=== PATIENT | female | born 1955 | race Caucasian/White ===

== ENCOUNTER 2017-02-08 21:44 | Inpatient (IN) | payer MEDICAID ==
[~2017-02-08] VITALS: Ht 157.5 cm; Wt 89.8 kg
[2017-02-09] MEDS ORDERED: SODIUM CHLORIDE 0.9% 1,000 ML IV ONE (02:15)
[2017-02-09] MEDS ORDERED: ONDANSETRON HCL 4MG/2ML VIAL ONE (02:34)
[2017-02-09] MEDS ORDERED: MORPHINE SULFATE 10 MG/ML CPJ ONE (02:35)
[2017-02-09 08:47] LABS: TROPONIN I < 0.02 ng/mL (0.00-0.04)
[2017-02-09 10:45] VITALS: BP 148/55
[2017-02-09 10:58] VITALS: BP 148/55
[2017-02-09] MEDS ORDERED: CLONIDINE 0.1MG TABLET PO PRN (11:45)
[2017-02-09] MEDS ORDERED: TRAMADOL 50MG TABLET PO PRN (11:45)
[2017-02-09] MEDS ORDERED: IPRATROPIUM/ALBUTEROL 0.5-3(2.5)MG/3ML NEB INH PRN (11:45)
[2017-02-09] MEDS ORDERED: DOCUSATE SODIUM 100MG CAPSULE PO PRN (11:45)
[2017-02-09] MEDS ORDERED: NA PHOS,M-B/NA PHOS,DI-BA ENEMA 118ML PR PRN (11:45)
[2017-02-09] MEDS ORDERED: DEXTROSE 50% WATER 50ML SYRINGE IV PRN (11:45)
[2017-02-09] MEDS ORDERED: LORAZEPAM 2MG/ML CPJ IV PRN (11:45)
[2017-02-09] MEDS ORDERED: DIPHENHYDRAMINE 50MG/ML VIAL IV PRN (11:45)
[2017-02-09] MEDS ORDERED: ACETAMINOPHEN 325MG TABLET PO PRN (11:45)
[2017-02-09] MEDS ORDERED: ONDANSETRON HCL 4MG/2ML VIAL IV PRN (11:45)
[2017-02-09] MEDS ORDERED: MAGNESIUM/ALUMINUM HYDROXIDE/SIMETHICONE 30ML UDC PO PRN (11:45)
[2017-02-09 11:50] VITALS: BP 148/55
[2017-02-09] MEDS: BLOOD SUGAR DIAGNOSTIC STRIP TEST SCH ×3 (12:32→21:34)
[2017-02-09] MEDS ORDERED: LEVO50TA8 PO (12:45)
[2017-02-09] MEDS ORDERED: NITR100C11 PO (12:45)
[2017-02-09] MEDS ORDERED: GLIP10TA10 PO (12:45)
[2017-02-09] MEDS ORDERED: OMEG100017 PO (12:45)
[2017-02-09] MEDS ORDERED: METO50TA5 PO (12:45)
[2017-02-09] MEDS ORDERED: INSU100I24 SQ (12:45)
[2017-02-09] MEDS ORDERED: ASPI-1159 PO (12:45)
[2017-02-09] MEDS ORDERED: ATOR40TA70 PO (12:45)
[2017-02-09] MEDS: INSULIN LISPRO 100 UNITS/ML SUBCUT SCH ×3 (12:53→21:32)
[2017-02-09] MEDS: PANTOPRAZOLE SODIUM 40 MG/VIAL IV SCH (12:54)
[2017-02-09] MEDS: SUCRALFATE 1 G/10 ML UDC PO SCH ×3 (12:54→21:28)
[2017-02-09 14:37] LABS: CREATINE KINASE MB FRACTION 0.7 ng/mL (0.5-3.6); TROPONIN I 0.03 ng/mL (0.00-0.04)
[2017-02-09 15:57] VITALS: BP 108/42
[2017-02-09 16:25] LABS: *AMPHETAMINES SCREEN URINE NEGATIVE (NEGATIVE); *BARBITURATES SCREEN URINE NEGATIVE (NEGATIVE); *BENZODIAZEPINES SCREEN URINE NEGATIVE (NEGATIVE); *COCAINE SCREEN URINE NEGATIVE (NEGATIVE); CANNABINOID URINE SCREEN NEGATIVE (NEGATIVE); METHADONE URINE SCREEN NEGATIVE (NEGATIVE); OPIATES URINE SCREEN PRESUMTIVE POSITIVE (NEGATIVE); PHENCYCLIDINE URINE SCREEN NEGATIVE (NEGATIVE)
[2017-02-09 17:25] LABS: CLARITY URINE CLEAR (CLEAR); COLOR URINE YELLOW (YELLOW); GLUCOSE URINE 3+ (NEGATIVE); KETONES URINE TRACE (NEGATIVE); LEUKOCYTE ESTERASE URINE NEGATIVE (NEGATIVE); NITRITE URINE NEGATIVE (NEGATIVE); OCCULT BLOOD URINE NEGATIVE (NEGATIVE); PROTEIN URINE NEGATIVE (NEGATIVE); SPECIFIC GRAVITY URINE 1.028 (1.005-1.030); UROBILINOGEN URINE 0.2 E.U./dL (0.2-1.0)
[2017-02-09 18:10] LABS: HEMATOCRIT 34.3 % (36.0-48.0); MEAN CORPUSCULAR HEMOGLOBIN 30.2 pg (28.0-32.0); MEAN CORPUSCULAR VOLUME 86.3 fL (81.0-99.0); PLATELET 256 x1000/uL (130-400); RED BLOOD CELL COUNT 3.98 mill/uL (4.2-5.4); RED CELL DISTRIBUTION WIDTH 12.9 % (11.6-14.6)
[2017-02-09 20:00] VITALS: BP 117/44
[2017-02-09] MEDS ORDERED: ZOLPIDEM TARTRATE 5MG TABLET PO PRN (21:00)
[2017-02-09] MEDS: METOPROLOL TARTRATE 25MG TABLET PO SCH (21:00)
[2017-02-09] MEDS: LISINOPRIL 20MG TABLET PO SCH (21:00)
[2017-02-09] MEDS: ENOXAPARIN 30MG/0.3ML SYR SUBCUT SCH (21:28)
[2017-02-09 21:34] VITALS: BP 109/42
[2017-02-09] MEDS ORDERED: INSULIN DETEMIR UD 100 UNITS/ML SYR SUBCUT SCH (22:00)
[2017-02-09 23:39] LABS: CREATINE KINASE 55 IU/L (26-192); CREATINE KINASE MB FRACTION < 0.5 ng/mL (0.5-3.6); TROPONIN I 0.09 ng/mL (0.00-0.04)
[2017-02-10] VITALS: BP 114/39
[2017-02-10 04:00] VITALS: BP 112/36
[2017-02-10] MEDS: BLOOD SUGAR DIAGNOSTIC STRIP TEST SCH ×2 (06:41→13:05)
[2017-02-10] MEDS: SUCRALFATE 1 G/10 ML UDC PO SCH ×2 (06:50→12:20)
[2017-02-10 08:00] VITALS: BP 120/75
[2017-02-10] MEDS ORDERED: ASPIRIN 325MG EC TABLET PO SCH (09:00)
[2017-02-10] MEDS: ENOXAPARIN 30MG/0.3ML SYR SUBCUT SCH (09:05)
[2017-02-10] MEDS: LISINOPRIL 20MG TABLET PO SCH (09:09)
[2017-02-10] MEDS: PANTOPRAZOLE SODIUM 40 MG/VIAL IV SCH (09:10)
[2017-02-10] MEDS: METOPROLOL TARTRATE 25MG TABLET PO SCH (09:10)
[2017-02-10] MEDS: INSULIN LISPRO 100 UNITS/ML SUBCUT SCH ×2 (09:15→12:50)
[2017-02-10 12:00] VITALS: BP 122/77
== END 2017-02-10 13:45 | disposition home or self-care (01) | DRG 243 ==
LOC: ER 21:55 → 6WST 02-09 09:09 → ENRESERV 02-09 09:09
PROVIDERS: ADMIT Internal Medicine; ATTEND Internal Medicine
DX: K21.9 Gastro-esophageal reflux disease without esophagitis (principal); E11.65 Type 2 diabetes mellitus with hyperglycemia; I10 Essential (primary) hypertension; E78.00 Pure hypercholesterolemia, unspecified; E66.9 Obesity, unspecified; Z68.36 Body mass index [BMI] 36.0-36.9, adult
CPT/HCPCS: 36415; 71010; 76705; 80048; 80061; 80305; 81001; 82550; 82553; 82962; 83036; 83605; 83690; 84484; 85027; 93005; 93970; 99285; C9113; J1650; J1815; J2270; J2405; J7030

== ENCOUNTER 2017-02-11 17:34 | Emergency (ER) | payer MEDICAID ==
[~2017-02-11] VITALS: Ht 157.5 cm; Wt 98.0 kg
[~2017-02-11 17:34] MED LIST: ASPI-1159 PO; ATOR40TA70 PO; GLIP10TA10 PO; INSU100I24 SQ; LEVO50TA8 PO; METO50TA5 PO; NITR100C11 PO; OMEG100017 PO
[2017-02-11] MEDS ORDERED: SODIUM CHLORIDE 0.9% 1,000 ML IV ONE (21:21)
[2017-02-11] MEDS ORDERED: FAMOTIDINE 20MG/2ML VIAL IV STA (21:21)
[2017-02-11] MEDS ORDERED: MAGNESIUM/ALUMINUM HYDROXIDE/SIMETHICONE 30ML UDC PO STA (21:21)
[2017-02-11] MEDS ORDERED: ONDANSETRON HCL 4MG/2ML VIAL IV STA (21:21)
[2017-02-11 21:49] LABS: BASOPHILS % 1.1 % (0.0-2.0); EOSINOPHILS % 0.2 % (0.0-5.0); HEMATOCRIT. 39.9 % (36.0-48.0); HEMOGLOBIN. 13.7 g/dL (12.0-16.0); LYMPHOCYTES % 7.4 % (20.0-50.0); MEAN CORPUSCULAR HEMOGLOBIN 29.9 pg (28.0-32.0); MEAN CORPUSCULAR VOLUME 87.1 fL (81.0-99.0); MEAN PLATELET VOLUME 8.1 fl (7.4-10.4); MONOCYTES % 2.2 % (2.0-8.0); NEUTROPHILS % 89.1 % (40.0-76.0); PLATELET 307 x1000/uL (130-400); RED BLOOD CELL COUNT 4.59 mill/uL (4.2-5.4); RED CELL DISTRIBUTION WIDTH 12.8 % (11.6-14.6)
[2017-02-11 21:51] LABS: CHLORIDE 98 mEq/L (98-107)
[2017-02-11 21:52] LABS: CLARITY URINE CLEAR (CLEAR); COLOR URINE YELLOW (YELLOW); GLUCOSE URINE 3+ (NEGATIVE); KETONES URINE 1+ (NEGATIVE); LEUKOCYTE ESTERASE URINE NEGATIVE (NEGATIVE); NITRITE URINE NEGATIVE (NEGATIVE); OCCULT BLOOD URINE 1+ (NEGATIVE); PROTEIN URINE 2+ (NEGATIVE); SPECIFIC GRAVITY URINE 1.026 (1.005-1.030); UROBILINOGEN URINE 0.2 E.U./dL (0.2-1.0)
[2017-02-11 21:54] LABS: PROTHROMBIN TIME 10.8 sec (9.4-11.6)
[2017-02-11 21:59] LABS: CARBON DIOXIDE 27 mEq/L (21-32)
[2017-02-11] MEDS ORDERED: PANTOPRAZOLE SODIUM 40 MG/VIAL IV NR (23:45)
[2017-02-11] MEDS ORDERED: INSULIN REGULAR (HUMULIN R) 300UNITS/3ML SUBCUT NR (23:45)
[2017-02-11] MEDS ORDERED: SODIUM CHLORIDE 0.9% 1,000 ML IV NR (23:45)
[2017-02-12] MEDS ORDERED: CLONIDINE 0.1MG TABLET PO NR
[2017-02-12] MEDS ORDERED: ACETAMINOPHEN 500MG TABLET PO NR (02:00)
[2017-02-12 02:16] VITALS: BP 145/73
== END 2017-02-12 02:19 | disposition home or self-care (01) ==
LOC: ER 18:58
DX: R10.13 Epigastric pain (principal); E11.65 Type 2 diabetes mellitus with hyperglycemia; I10 Essential (primary) hypertension; Z79.82 Long term (current) use of aspirin; Z79.4 Long term (current) use of insulin
CPT/HCPCS: 36415; 80053; 81001; 83690; 85025; 85610; 96361; 96365; 96372; 96375; 99285; C9113; J1815; J2405; J3490; J7030; Z7610

== ENCOUNTER 2019-05-24 07:47 | Inpatient (IN) | payer MEDICAID, OTHER ==
[~2019-05-24] VITALS: Ht 152.4 cm; Wt 97.5 kg
[~2019-05-24 07:47] MED LIST changes: -ASPI-1159 PO; +ASPI-1497 PO; +METO25TA6 PO; -METO50TA5 PO; -NITR100C11 PO
[2019-05-24] MEDS ORDERED: GABAPENTIN 300MG CAPSULE PO ONE (08:15)
[2019-05-24] MEDS ORDERED: ASPIRIN 81MG TABLET PO ONE (08:15)
[2019-05-24 09:28] LABS: BASOPHILS % 0.7 % (0.0-2.0); EOSINOPHILS % 3.2 % (0.0-5.0); HEMATOCRIT. 37.4 % (36.0-48.0); HEMOGLOBIN. 12.5 g/dL (12.0-16.0); LYMPHOCYTES % 22.6 % (20.0-50.0); MEAN CORPUSCULAR HEMOGLOBIN 30.1 pg (28.0-32.0); MEAN CORPUSCULAR VOLUME 89.9 fL (81.0-99.0); MEAN PLATELET VOLUME 8.5 fl (7.4-10.4); MONOCYTES % 5.9 % (2.0-8.0); NEUTROPHILS % 67.6 % (40.0-76.0); PLATELET 230 x1000/uL (130-400); RED BLOOD CELL COUNT 4.16 mill/uL (4.2-5.4)
[2019-05-24 09:29] LABS: CHLORIDE 106 mEq/L (98-107)
[2019-05-24 12:00] VITALS: BP 128/48
[2019-05-24] MEDS ORDERED: IPRATROPIUM/ALBUTEROL 0.5-3(2.5)MG/3ML NEB HHN PRN (13:00)
[2019-05-24] MEDS ORDERED: CLONIDINE 0.1MG TABLET PO PRN (13:00)
[2019-05-24] MEDS ORDERED: ONDANSETRON HCL 4MG/2ML INJ IV PRN (13:00)
[2019-05-24] MEDS ORDERED: ACETAMINOPHEN 325MG TABLET PO PRN (13:00)
[2019-05-24] MEDS ORDERED: DIPHENHYDRAMINE 50MG/ML VIAL IV PRN (13:00)
[2019-05-24] MEDS ORDERED: GUAIFENESIN 200MG/10ML SUGAR FREE UDC PO PRN (13:00)
[2019-05-24 14:16] LABS: PHOSPHORUS 3.6 mg/dL (2.5-4.9)
[2019-05-24 14:30] VITALS: BP 126/48
[2019-05-24] MEDS ORDERED: PIOG30TA71 PO (14:36)
[2019-05-24] MEDS ORDERED: LOSA25TA26 PO (14:36)
[2019-05-24] MEDS ORDERED: AMLO10TA4 MT (14:36)
[2019-05-24] MEDS ORDERED: METOPROLOL TARTRATE 25MG TABLET PO SCH (15:30)
[2019-05-24 16:00] VITALS: BP 129/54
[2019-05-24] MEDS: GLIPIZIDE 10MG TABLET PO SCH (18:06)
[2019-05-24 20:00] VITALS: BP 130/53
[2019-05-24] MEDS: AMLODIPINE 2.5MG TABLET PO SCH (21:00)
[2019-05-24] MEDS: METOPROLOL TARTRATE 25MG TABLET PO SCH (21:00)
[2019-05-24] MEDS: ATORVASTATIN CALCIUM 20MG TABLET PO SCH (21:08)
[2019-05-25] VITALS: BP 131/58
[2019-05-25 04:00] VITALS: BP 146/67
[2019-05-25] MEDS: BLOOD SUGAR DIAGNOSTIC STRIP TEST SCH ×4 (05:54→20:51)
[2019-05-25 06:15] LABS: BASOPHILS % 0.6 % (0.0-2.0); EOSINOPHILS % 4.3 % (0.0-5.0); HEMATOCRIT. 35.2 % (36.0-48.0); HEMOGLOBIN. 11.6 g/dL (12.0-16.0); LYMPHOCYTES % 28.9 % (20.0-50.0); MEAN CORPUSCULAR HEMOGLOBIN 29.6 pg (28.0-32.0); MEAN CORPUSCULAR VOLUME 89.4 fL (81.0-99.0); MEAN PLATELET VOLUME 8.4 fl (7.4-10.4); MONOCYTES % 7.3 % (2.0-8.0); NEUTROPHILS % 58.9 % (40.0-76.0); PLATELET 223 x1000/uL (130-400); RED BLOOD CELL COUNT 3.93 mill/uL (4.2-5.4); RED CELL DISTRIBUTION WIDTH 14.6 % (11.6-14.6)
[2019-05-25 06:42] LABS: CHLORIDE 107 mEq/L (98-107)
[2019-05-25 07:11] LABS: LDL CHOLESTEROL 68 mg/dL (5-100)
[2019-05-25 07:12] LABS: HDL CHOLESTEROL 41 mg/dL (40-59)
[2019-05-25 08:00] VITALS: BP 127/59
[2019-05-25] MEDS: ASPIRIN 81MG EC TABLET PO SCH (08:07)
[2019-05-25] MEDS: GLIPIZIDE 10MG TABLET PO SCH ×2 (08:07→17:20)
[2019-05-25] MEDS: LOSARTAN POTASSIUM 25 MG TABLET PO SCH (08:07)
[2019-05-25] MEDS: LEVOTHYROXINE SODIUM 50MCG TABLET PO SCH (08:07)
[2019-05-25] MEDS: AMLODIPINE 2.5MG TABLET PO SCH ×2 (08:08→20:58)
[2019-05-25] MEDS: METOPROLOL TARTRATE 25MG TABLET PO SCH ×2 (08:11→20:47)
[2019-05-25 12:00] VITALS: BP 133/65
[2019-05-25] MEDS: INSULIN LISPRO 100 UNITS/ML SUBCUT SCH ×3 (12:51→20:59)
[2019-05-25 16:00] VITALS: BP 141/61
[2019-05-25 20:00] VITALS: BP 141/48
[2019-05-25] MEDS: ATORVASTATIN CALCIUM 20MG TABLET PO SCH (20:57)
[2019-05-26] VITALS: BP 141/43
[2019-05-26] MEDS: BLOOD SUGAR DIAGNOSTIC STRIP TEST SCH ×3 (06:49→17:59)
[2019-05-26] MEDS: GLIPIZIDE 10MG TABLET PO SCH ×2 (07:40→17:40)
[2019-05-26 08:00] VITALS: BP 135/57
[2019-05-26] MEDS: INSULIN LISPRO 100 UNITS/ML SUBCUT SCH ×3 (08:10→18:15)
[2019-05-26 08:16] LABS: BASOPHILS % 0.6 % (0.0-2.0); EOSINOPHILS % 3.9 % (0.0-5.0); HEMATOCRIT. 36.4 % (36.0-48.0); HEMOGLOBIN. 12.1 g/dL (12.0-16.0); LYMPHOCYTES % 25.3 % (20.0-50.0); MEAN CORPUSCULAR HEMOGLOBIN 29.9 pg (28.0-32.0); MEAN CORPUSCULAR VOLUME 89.8 fL (81.0-99.0); MEAN PLATELET VOLUME 8.1 fl (7.4-10.4); MONOCYTES % 7.3 % (2.0-8.0); NEUTROPHILS % 62.9 % (40.0-76.0); PLATELET 248 x1000/uL (130-400); RED BLOOD CELL COUNT 4.05 mill/uL (4.2-5.4); RED CELL DISTRIBUTION WIDTH 14.3 % (11.6-14.6)
[2019-05-26 08:32] LABS: PHOSPHORUS 3.9 mg/dL (2.5-4.9)
[2019-05-26] MEDS: METOPROLOL TARTRATE 25MG TABLET PO SCH (09:00)
[2019-05-26] MEDS: ASPIRIN 81MG EC TABLET PO SCH (09:00)
[2019-05-26] MEDS: LOSARTAN POTASSIUM 25 MG TABLET PO SCH (09:00)
[2019-05-26] MEDS: AMLODIPINE 2.5MG TABLET PO SCH (09:00)
[2019-05-26] MEDS: LEVOTHYROXINE SODIUM 50MCG TABLET PO SCH (10:09)
[2019-05-26] MEDS ORDERED: REGADENOSON 0.4 MG/5 ML IV ONE ×2 (11:39→12:45)
[2019-05-26 12:00] VITALS: BP 154/70
[2019-05-26 16:00] VITALS: BP 141/33
[2019-05-26] MEDS ORDERED: METF-414 MT (17:50)
[2019-05-26 18:06] VITALS: BP 141/33
== END 2019-05-26 19:00 | disposition home or self-care (01) | DRG 203 ==
LOC: ER 07:47 → 7WST 11:16 → ENRESERV 12:40
PROVIDERS: ADMIT Internal Medicine; ATTEND Internal Medicine
DX: M94.0 Chondrocostal junction syndrome [Tietze] (principal); E11.22 Type 2 diabetes mellitus with diabetic chronic kidney disease; E66.01 Morbid (severe) obesity due to excess calories; I07.1 Rheumatic tricuspid insufficiency; Z68.41 Body mass index [BMI] 40.0-44.9, adult; I12.9 Hypertensive chronic kidney disease with stage 1 through stage 4 chronic kidney disease, or unspecified chronic kidney disease; E78.5 Hyperlipidemia, unspecified; N18.9 Chronic kidney disease, unspecified; E78.00 Pure hypercholesterolemia, unspecified; Z79.82 Long term (current) use of aspirin; Z79.899 Other long term (current) drug therapy; Z87.440 Personal history of urinary (tract) infections
CPT/HCPCS: 36415; 71045; 78452; 80048; 80053; 80061; 82550; 82553; 82962; 83735; 83880; 84100; 84443; 84484; 85025; 93005; 93017; 93306; 93970; 99285; A9500; J1815; J2785

== ENCOUNTER 2020-09-29 17:47 | Emergency (ER) | payer MEDICAID, OTHER ==
[~2020-09-29] VITALS: Ht 157.5 cm; Wt 106.0 kg
[~2020-09-29 17:47] MED LIST changes: +AMLO10TA4 MT; -GLIP10TA10 PO; +LOSA25TA26 PO; +METF-414 MT; +PIOG30TA71 PO
[2020-09-29 18:48] LABS: BASOPHILS % 0.8 % (0.0-2.0); HEMATOCRIT. 33.6 % (36.0-48.0); HEMOGLOBIN. 11.4 g/dL (12.0-16.0); LYMPHOCYTES % 21.9 % (20.0-50.0); MEAN CORPUSCULAR HEMOGLOBIN 30.7 pg (28.0-32.0); MEAN CORPUSCULAR VOLUME 90.1 fL (81.0-99.0); MEAN PLATELET VOLUME 7.6 fl (7.4-10.4); MONOCYTES % 8.4 % (2.0-8.0); NEUTROPHILS % 65.9 % (40.0-76.0); PLATELET 274 x1000/uL (130-400); RED BLOOD CELL COUNT 3.73 mill/uL (4.2-5.4)
[2020-09-29 18:53] LABS: CHLORIDE 100 mEq/L (98-107)
[2020-09-29 21:04] VITALS: BP 118/66
== END 2020-09-29 21:14 | disposition home or self-care (01) ==
LOC: ER 17:47
DX: G62.9 Polyneuropathy, unspecified (principal); I16.0 Hypertensive urgency; I10 Essential (primary) hypertension; E78.00 Pure hypercholesterolemia, unspecified; E11.9 Type 2 diabetes mellitus without complications; E05.90 Thyrotoxicosis, unspecified without thyrotoxic crisis or storm; Z79.4 Long term (current) use of insulin; Z79.82 Long term (current) use of aspirin; Z87.440 Personal history of urinary (tract) infections
CPT/HCPCS: 36415; 70450; 71045; 80053; 82962; 85025; 93005; 99285; Z7610

== ENCOUNTER 2020-10-02 06:02 | Emergency (ER) | payer MEDICARE, OTHER ==
[~2020-10-02] VITALS: Ht 157.5 cm; Wt 105.0 kg
[2020-10-02 07:36] LABS: BASOPHILS % 0.4 % (0.0-2.0); HEMATOCRIT. 32.6 % (36.0-48.0); HEMOGLOBIN. 11.3 g/dL (12.0-16.0); LYMPHOCYTES % 23.9 % (20.0-50.0); MEAN CORPUSCULAR VOLUME 89.8 fL (81.0-99.0); MEAN PLATELET VOLUME 8.2 fl (7.4-10.4); MONOCYTES % 7.9 % (2.0-8.0); NEUTROPHILS % 64.8 % (40.0-76.0); PLATELET 257 x1000/uL (130-400); RED BLOOD CELL COUNT 3.63 mill/uL (4.2-5.4); RED CELL DISTRIBUTION WIDTH 13.8 % (11.6-14.6)
[2020-10-02 07:37] LABS: CHLORIDE 97 mEq/L (98-107)
[2020-10-02] MEDS ORDERED: SODIUM CHLORIDE 0.9% 250 ML IV ONE (08:00)
[2020-10-02 09:30] VITALS: BP 151/62
== END 2020-10-02 09:31 | disposition home or self-care (01) ==
LOC: ER 06:02
DX: I16.0 Hypertensive urgency (principal); R20.2 Paresthesia of skin; N28.9 Disorder of kidney and ureter, unspecified; E87.1 Hypo-osmolality and hyponatremia; D64.9 Anemia, unspecified; E11.9 Type 2 diabetes mellitus without complications; E78.00 Pure hypercholesterolemia, unspecified; E05.90 Thyrotoxicosis, unspecified without thyrotoxic crisis or storm; Z79.4 Long term (current) use of insulin; Z79.82 Long term (current) use of aspirin
CPT/HCPCS: 36415; 70551; 80053; 84484; 85025; 93005; 99285

== ENCOUNTER 2020-10-14 13:30 | Inpatient (IN) | payer MEDICARE, OTHER ==
[~2020-10-14] VITALS: Ht 152.4 cm; Wt 105.7 kg
[2020-10-14] MEDS ORDERED: NITROGLYCERIN OINT 1GM/INCH UDPKT TD ONE (14:15)
[2020-10-14] MEDS ORDERED: ASPIRIN 81MG TABLET PO ONE (14:15)
[2020-10-14 14:55] LABS: BASOPHILS % 0.4 % (0.0-2.0); EOSINOPHILS % 3.4 % (0.0-5.0); HEMATOCRIT. 32.2 % (36.0-48.0); HEMOGLOBIN. 11.3 g/dL (12.0-16.0); LYMPHOCYTES % 20.9 % (20.0-50.0); MEAN CORPUSCULAR HEMOGLOBIN 30.9 pg (28.0-32.0); MEAN CORPUSCULAR VOLUME 88.3 fL (81.0-99.0); MEAN PLATELET VOLUME 7.5 fl (7.4-10.4); MONOCYTES % 8.4 % (2.0-8.0); NEUTROPHILS % 66.9 % (40.0-76.0); PLATELET 267 x1000/uL (130-400); RED BLOOD CELL COUNT 3.65 mill/uL (4.2-5.4); RED CELL DISTRIBUTION WIDTH 13.4 % (11.6-14.6)
[2020-10-14 15:03] LABS: CHLORIDE 94 mEq/L (98-107)
[2020-10-14 15:07] LABS: INR 1.1; PROTHROMBIN TIME 11.6 sec (9.6-11.0)
[2020-10-14] MEDS ORDERED: SODIUM CHLORIDE 0.9% 250 ML IV ONE (16:00)
[2020-10-14] MEDS ORDERED: ACETAMINOPHEN 325MG TABLET PO PRN (19:45)
[2020-10-14] MEDS ORDERED: IPRATROPIUM/ALBUTEROL 0.5-3(2.5)MG/3ML NEB HHN PRN (19:45)
[2020-10-14] MEDS ORDERED: ONDANSETRON HCL 4MG/2ML INJ IV PRN (19:45)
[2020-10-14] MEDS ORDERED: CLONIDINE 0.1MG TABLET PO PRN (19:45)
[2020-10-14] MEDS ORDERED: DIPHENHYDRAMINE 50MG/ML VIAL IV PRN (19:45)
[2020-10-14] MEDS ORDERED: MORPHINE SULFATE 2 MG/ML CPJ (NOT FOR IM USE) IV PRN (19:45)
[2020-10-14] MEDS ORDERED: ENOXAPARIN 40MG/0.4ML SYR SUBCUT SCH (20:00)
[2020-10-14 21:15] VITALS: BP 180/67
[2020-10-14 21:45] VITALS: BP 180/67
[2020-10-14 22:30] VITALS: BP 147/52
[2020-10-14] MEDS ORDERED: HYDR25TA PO (23:11)
[2020-10-14] MEDS ORDERED: LOSA100T32 PO (23:11)
[2020-10-14] MEDS ORDERED: CHOL200059 PO (23:11)
[2020-10-15] VITALS: BP 104/42
[2020-10-15] MEDS ORDERED: DEXTROSE 50% WATER 50ML SYRINGE IV PRN (00:45)
[2020-10-15 04:30] VITALS: BP 156/61
[2020-10-15] MEDS: BLOOD SUGAR DIAGNOSTIC STRIP TEST SCH ×4 (06:42→21:57)
[2020-10-15 06:52] LABS: BASOPHILS % 0.6 % (0.0-2.0); EOSINOPHILS % 2.6 % (0.0-5.0); HEMATOCRIT. 34.9 % (36.0-48.0); LYMPHOCYTES % 24.5 % (20.0-50.0); MEAN CORPUSCULAR HEMOGLOBIN 30.7 pg (28.0-32.0); MEAN CORPUSCULAR VOLUME 89.6 fL (81.0-99.0); MEAN PLATELET VOLUME 7.6 fl (7.4-10.4); MONOCYTES % 7.1 % (2.0-8.0); NEUTROPHILS % 65.2 % (40.0-76.0); PLATELET 275 x1000/uL (130-400); RED CELL DISTRIBUTION WIDTH 13.8 % (11.6-14.6)
[2020-10-15 07:09] LABS: CHLORIDE 98 mEq/L (98-107)
[2020-10-15 07:27] LABS: HDL CHOLESTEROL 42 mg/dL (40-59)
[2020-10-15 07:30] LABS: LDL CHOLESTEROL 64 mg/dL (5-100)
[2020-10-15 08:03] VITALS: BP 128/86
[2020-10-15] MEDS: INSULIN LISPRO 100 UNITS/ML SUBCUT SCH ×4 (08:48→21:56)
[2020-10-15] MEDS ORDERED: ENOXAPARIN 40MG/0.4ML SYR SUBCUT SCH (09:00)
[2020-10-15 12:16] VITALS: BP 169/54
[2020-10-15] MEDS: LOSARTAN POTASSIUM 100 MG TABLET PO SCH (15:03)
[2020-10-15] MEDS: HYDROCHLOROTHIAZIDE 25MG TABLET PO SCH (15:03)
[2020-10-15] MEDS: CHOLECALCIFEROL (D3) 1000 UNIT TABLET PO SCH (15:03)
[2020-10-15] MEDS: ASPIRIN 81MG EC TABLET PO SCH (15:03)
[2020-10-15 15:46] VITALS: BP 145/40
[2020-10-15] MEDS: METFORMIN HCL 500MG TABLET PO SCH (17:55)
[2020-10-15 20:00] VITALS: BP 129/43
[2020-10-15] MEDS ORDERED: ATORVASTATIN CALCIUM 40MG TABLET PO SCH (21:00)
[2020-10-15] MEDS: ENOXAPARIN 40MG/0.4ML SYR SUBCUT SCH (21:39)
[2020-10-16] VITALS: BP 119/42
[2020-10-16 04:00] VITALS: BP 126/38
[2020-10-16] MEDS: BLOOD SUGAR DIAGNOSTIC STRIP TEST SCH ×2 (06:45→12:20)
[2020-10-16] MEDS: LEVOTHYROXINE SODIUM 50MCG TABLET PO SCH ×2 (06:45→06:49)
[2020-10-16 08:00] VITALS: BP 139/45
[2020-10-16] MEDS ORDERED: PIOGLITAZONE 15MG TABLET PO SCH (09:00)
[2020-10-16] MEDS: ASPIRIN 81MG EC TABLET PO SCH (09:05)
[2020-10-16] MEDS: METFORMIN HCL 500MG TABLET PO SCH (09:05)
[2020-10-16] MEDS: LOSARTAN POTASSIUM 100 MG TABLET PO SCH (09:05)
[2020-10-16] MEDS: ENOXAPARIN 40MG/0.4ML SYR SUBCUT SCH (09:06)
[2020-10-16] MEDS: HYDROCHLOROTHIAZIDE 25MG TABLET PO SCH (09:06)
[2020-10-16] MEDS: CHOLECALCIFEROL (D3) 1000 UNIT TABLET PO SCH (09:06)
[2020-10-16] MEDS: INSULIN LISPRO 100 UNITS/ML SUBCUT SCH ×2 (09:16→12:50)
[2020-10-16 12:00] VITALS: BP_SYST 113; BP_SYST 130; BP_DIAS 45; BP_DIAS 81
[2020-10-16 15:42] VITALS: BP 130/45
== END 2020-10-16 16:30 | disposition home or self-care (01) | DRG 206 ==
LOC: ER 13:30 → 6WST 17:30 → EDBEDREQTM 17:44 → EDBEDREQ 17:44 → ENRESERV 20:29
PROVIDERS: ADMIT Internal Medicine; ATTEND Internal Medicine
DX: M94.0 Chondrocostal junction syndrome [Tietze] (principal); Z68.42 Body mass index [BMI] 45.0-49.9, adult; E87.1 Hypo-osmolality and hyponatremia; E78.5 Hyperlipidemia, unspecified; E11.65 Type 2 diabetes mellitus with hyperglycemia; E03.9 Hypothyroidism, unspecified; I10 Essential (primary) hypertension; D64.9 Anemia, unspecified; E78.00 Pure hypercholesterolemia, unspecified; E05.90 Thyrotoxicosis, unspecified without thyrotoxic crisis or storm; I27.20 Pulmonary hypertension, unspecified; E66.01 Morbid (severe) obesity due to excess calories; Z79.899 Other long term (current) drug therapy; Z79.82 Long term (current) use of aspirin; Z83.3 Family history of diabetes mellitus
CPT/HCPCS: 36415; 70551; 71045; 80053; 80061; 82962; 83036; 83880; 84443; 84484; 85025; 93005; 93306; 93970; 99285; C1893; J1650; J1815; J2270; J7050

== ENCOUNTER 2020-10-20 17:58 | Inpatient (IN) | payer MEDICARE, OTHER ==
[~2020-10-20] VITALS: Ht 157.5 cm; Wt 104.4 kg
[~2020-10-20 17:58] MED LIST changes: +CHOL200059 PO; +HYDR25TA PO; +LOSA100T32 PO
[2020-10-20 19:22] LABS: BASOPHILS % 0.7 % (0.0-2.0); HEMATOCRIT. 31.8 % (36.0-48.0); HEMOGLOBIN. 11.3 g/dL (12.0-16.0); LYMPHOCYTES % 22.4 % (20.0-50.0); MEAN CORPUSCULAR HEMOGLOBIN 31.1 pg (28.0-32.0); MEAN CORPUSCULAR VOLUME 87.3 fL (81.0-99.0); MEAN PLATELET VOLUME 7.2 fl (7.4-10.4); MONOCYTES % 7.4 % (2.0-8.0); NEUTROPHILS % 67.5 % (40.0-76.0); PLATELET 283 x1000/uL (130-400); RED BLOOD CELL COUNT 3.65 mill/uL (4.2-5.4); RED CELL DISTRIBUTION WIDTH 13.5 % (11.6-14.6)
[2020-10-20 19:30] LABS: CHLORIDE 89 mEq/L (98-107)
[2020-10-20] MEDS ORDERED: SODIUM CHLORIDE 0.9% 1,000 ML IV ONE (21:15)
[2020-10-21] VITALS (12 sets, daily range): BP systolic 111–157; BP diastolic 41–97
[2020-10-21] MEDS ORDERED: GLIP5TAB12 MT (02:23)
[2020-10-21] MEDS ORDERED: DEXTROSE 50% WATER 50ML SYRINGE IV PRN (02:30)
[2020-10-21] MEDS: BLOOD SUGAR DIAGNOSTIC STRIP TEST SCH ×4 (06:36→21:00)
[2020-10-21] MEDS: LEVOTHYROXINE SODIUM 50MCG TABLET PO SCH (06:43)
[2020-10-21] MEDS: PIOGLITAZONE 15MG TABLET PO SCH (06:43)
[2020-10-21] MEDS: METFORMIN HCL 500MG TABLET PO SCH ×2 (09:00→18:41)
[2020-10-21] MEDS ORDERED: PIOGLITAZONE HCL 30 MG PO SCH (09:00)
[2020-10-21] MEDS: ASPIRIN 81MG EC TABLET PO SCH (09:00)
[2020-10-21] MEDS: LOSARTAN POTASSIUM 100 MG TABLET PO SCH (09:00)
[2020-10-21] MEDS ORDERED: ENOXAPARIN 40MG/0.4ML SYR SUBCUT SCH (09:00)
[2020-10-21] MEDS: ENOXAPARIN 30MG/0.3ML SYR SUBCUT SCH ×2 (09:01→21:13)
[2020-10-21] MEDS: GLIPIZIDE 5MG TABLET PO SCH ×2 (09:01→18:41)
[2020-10-21] MEDS: INSULIN LISPRO 100 UNITS/ML SUBCUT SCH ×4 (09:09→21:15)
[2020-10-21 10:20] LABS: CLARITY URINE CLEAR (CLEAR); COLOR URINE YELLOW (YELLOW); KETONES URINE NEGATIVE (NEGATIVE); LEUKOCYTE ESTERASE URINE TRACE (NEGATIVE); NITRITE URINE NEGATIVE (NEGATIVE); OCCULT BLOOD URINE NEGATIVE (NEGATIVE); PH URINE 7.5 (4.5-8.0); PROTEIN URINE NEGATIVE (NEGATIVE); SPECIFIC GRAVITY URINE 1.007 (1.005-1.030); UROBILINOGEN URINE 0.2 E.U./dL (0.2-1.0)
[2020-10-21] MEDS: SODIUM CHLORIDE 0.9% 1,000 ML IV SCH (10:30)
[2020-10-21 11:54] LABS: BASOPHILS % 0.6 % (0.0-2.0); EOSINOPHILS % 2.6 % (0.0-5.0); HEMATOCRIT. 32.4 % (36.0-48.0); HEMOGLOBIN. 11.4 g/dL (12.0-16.0); LYMPHOCYTES % 23.6 % (20.0-50.0); MEAN CORPUSCULAR VOLUME 87.8 fL (81.0-99.0); MEAN PLATELET VOLUME 7.2 fl (7.4-10.4); MONOCYTES % 8.9 % (2.0-8.0); NEUTROPHILS % 64.3 % (40.0-76.0); PLATELET 263 x1000/uL (130-400); RED CELL DISTRIBUTION WIDTH 13.6 % (11.6-14.6)
[2020-10-21 11:56] LABS: CHLORIDE 96 mEq/L (98-107)
[2020-10-21 15:07] LABS: SODIUM URINE RANDOM 34 mEq/L
[2020-10-21] MEDS ORDERED: ATORVASTATIN CALCIUM 40MG TABLET PO SCH (21:00)
[2020-10-22] VITALS (8 sets, daily range): BP systolic 115–160; BP diastolic 42–85
[2020-10-22] MEDS: SODIUM CHLORIDE 0.9% 1,000 ML IV SCH (00:29)
[2020-10-22] MEDS: PIOGLITAZONE 15MG TABLET PO SCH (06:13)
[2020-10-22] MEDS: LEVOTHYROXINE SODIUM 50MCG TABLET PO SCH (06:13)
[2020-10-22] MEDS: BLOOD SUGAR DIAGNOSTIC STRIP TEST SCH ×2 (06:14→12:13)
[2020-10-22] MEDS: INSULIN LISPRO 100 UNITS/ML SUBCUT SCH ×2 (06:23→12:13)
[2020-10-22 06:32] LABS: BASOPHILS % 0.7 % (0.0-2.0); EOSINOPHILS % 2.8 % (0.0-5.0); HEMATOCRIT. 30.9 % (36.0-48.0); HEMOGLOBIN. 10.9 g/dL (12.0-16.0); LYMPHOCYTES % 24.7 % (20.0-50.0); MEAN CORPUSCULAR HEMOGLOBIN 31.1 pg (28.0-32.0); MEAN CORPUSCULAR VOLUME 88.6 fL (81.0-99.0); MEAN PLATELET VOLUME 8.4 fl (7.4-10.4); MONOCYTES % 7.8 % (2.0-8.0); PLATELET 234 x1000/uL (130-400); RED BLOOD CELL COUNT 3.49 mill/uL (4.2-5.4); RED CELL DISTRIBUTION WIDTH 13.5 % (11.6-14.6)
[2020-10-22 06:44] LABS: PHOSPHORUS 3.5 mg/dL (2.5-4.9)
[2020-10-22] MEDS: METFORMIN HCL 500MG TABLET PO SCH (08:37)
[2020-10-22] MEDS: GLIPIZIDE 5MG TABLET PO SCH (08:37)
[2020-10-22] MEDS: LOSARTAN POTASSIUM 100 MG TABLET PO SCH (08:37)
[2020-10-22] MEDS: ENOXAPARIN 30MG/0.3ML SYR SUBCUT SCH (08:37)
[2020-10-22] MEDS: ASPIRIN 81MG EC TABLET PO SCH (08:37)
== END 2020-10-22 12:00 | disposition home or self-care (01) | DRG 641 ==
LOC: ER 17:58 → 3WST 23:16 → ENRESERV 23:52
PROVIDERS: ADMIT Internal Medicine; ATTEND Internal Medicine
DX: E87.1 Hypo-osmolality and hyponatremia (principal); J98.11 Atelectasis; I16.0 Hypertensive urgency; E03.9 Hypothyroidism, unspecified; E11.9 Type 2 diabetes mellitus without complications; E78.5 Hyperlipidemia, unspecified; E87.8 Other disorders of electrolyte and fluid balance, not elsewhere classified; T50.2X5A Adverse effect of carbonic-anhydrase inhibitors, benzothiadiazides and other diuretics, initial encounter; M19.90 Unspecified osteoarthritis, unspecified site; E78.00 Pure hypercholesterolemia, unspecified; I10 Essential (primary) hypertension; Z82.49 Family history of ischemic heart disease and other diseases of the circulatory system; Z79.899 Other long term (current) drug therapy; Z79.82 Long term (current) use of aspirin; Y92.89 Other specified places as the place of occurrence of the external cause
CPT/HCPCS: 36415; 71045; 80048; 80053; 81003; 82533; 82962; 83735; 83880; 83935; 84100; 84300; 84443; 84484; 85025; 93005; 97161; 99285; J1650; J1815; J7030